=== PATIENT | male | born 1985 | race Caucasian/White ===

== ENCOUNTER 2023-07-19 07:49 | Outpatient (CLI) | payer OTHER ==
[2023-07-19 08:27] LABS: #Basophils 0.07 10x3/uL (0.0-0.2); #Eosinphils 0.19 10x3/uL (0.0-0.5); #Monocytes 0.51 10x3/uL (0.0-1.1); #Neutrophils 2.37 10x3/uL (1.5-8.4); %Eosinophils 2.8 % (0.0-6.0); %Lymphocytes 52.2 % (18.0-47.0); %Monocytes 7.6 % (0.0-10.0); %Neutrophils 35.4 % (40.0-75.0); Hematocrit 44.4 % (38.8-50.0); Hemoglobin 15.6 g/dL (13.5-17.5); Mean Corpuscular HGB CONC 35.1 g/dL (32.0-36.0); Mean Corpuscular Hemoglobin 28.4 pg (27.0-33.0); Mean Corpuscular Volume 80.7 fL (81.2-95.1); Mean Platelet Volume 9.6 fL (7.4-10.4); Platelet Count 234 10x3/uL (150-450); RBC Distribution Width 12.8 % (11.5-14.5); White Blood Cell (WBC) Count 6.7 10x3/uL (3.5-10.5)
[2023-07-19 08:46] LABS: Anion Gap 15 mmol/L (10-20); BUN (Urea Nitrogen) 20 mg/dL (8.9-20.6); Calc. Creatinine Clearance 0 mL/min (70-130); Calcium 9.7 mg/dL (7.8-10.44); Carbon Dioxide 25 mmol/L (22-29); Chloride 106 mmol/L (98-107); Estimated GFR 96; Glucose 109 mg/dL (70-105); Potassium 4.8 mmol/L (3.5-5.1); Sodium 141 mmol/L (136-145)
== END 2023-07-19 07:50 | disposition home or self-care (01) ==
LOC: LABBT 07:49
PROVIDERS: ATTEND Orthopaedic Surgery
DX: Z01.812 Encounter for preprocedural laboratory examination (principal); S43.432A Superior glenoid labrum lesion of left shoulder, initial encounter
CPT/HCPCS: 80048; 85025

== ENCOUNTER 2023-07-27 05:33 | Day surgery (SDC) | payer OTHER ==
[2023-07-19 08:15] VITALS: BMI 29.0
[2023-07-27] MEDS ORDERED: Bupivacaine 0.25% HCL 30 ML VIAL ONE (06:27)
[2023-07-27] MEDS ORDERED: EPINEPHrine 1 MG/ML VIAL ONE (06:27)
[2023-07-27] MEDS ORDERED: fentaNYL 50 mcg/mL 1 mL Vial ONE (06:43)
[2023-07-27] MEDS ORDERED: Ropivacaine 0.5% HCl/PF (150 MG/30 ML VIAL) ONE (06:43)
[2023-07-27] MEDS ORDERED: Midazolam HCl 2 mg/2 ml Vial ONE (06:43)
[2023-07-27] MEDS ORDERED: Ropivacaine 0.2% HCl/PF 20 ML ONE (06:43)
[2023-07-27] MEDS ORDERED: Dexmedetomidine 200 MCG/2 ML VIAL ONE (06:47)
[2023-07-27] MEDS ORDERED: Rocuronium Bromide 10 MG/ML (10ML VIAL) ONE ×2 (07:18→07:20)
[2023-07-27] MEDS ORDERED: PROPOFOL 20 ML ONE ×2 (07:18→08:18)
[2023-07-27] MEDS ORDERED: CEFAZOLIN 2 GM VIAL ONE (07:22)
[2023-07-27] MEDS ORDERED: Sodium Chloride 0.9% 100 ML ONE (07:23)
[2023-07-27] MEDS ORDERED: Promethazine HCl 25 MG/ML VIAL IM PRN (07:30)
[2023-07-27] MEDS ORDERED: Ondansetron PF 4 MG/2 ML Vial IVP PRN (07:30)
[2023-07-27] MEDS ORDERED: Zolpidem Tartrate 5 MG TAB PO PRN (07:30)
[2023-07-27] MEDS ORDERED: HYDROcodone/Acetaminophen 10/325 mg Tablet PO PRN ×2 (07:30)
[2023-07-27] MEDS ORDERED: traMADol HCl 50 MG TAB PO PRN ×2 (07:30)
[2023-07-27] MEDS ORDERED: Ropivacaine 0.2% 550 ML 550 ML NERVE BLCK SCH (07:30)
[2023-07-27] MEDS ORDERED: Dexamethasone 20 MG/5 ML VIAL ONE (07:38)
[2023-07-27] MEDS ORDERED: Vecuronium 10 MG VIAL ONE (08:10)
[2023-07-27] MEDS ORDERED: SUGAMMADEX SODIUM 200 MG/2 ML VIAL ONE (08:57)
[2023-07-27] MEDS ORDERED: Ketorolac Tromethamine 30 MG (1 mL) VIAL ONE (08:58)
[2023-07-27] MEDS ORDERED: Lidocaine 4% Topical Sol 50 ML BOT ONE (09:27)
[2023-07-27] MEDS ORDERED: Ketorolac Tromethamine 30 MG (1 mL) VIAL IVP SCH (12:00)
== END 2023-07-27 11:44 | disposition home or self-care (01) ==
LOC: SDC 05:33
PROVIDERS: ATTEND Orthopaedic Surgery
PROC: 0LM24ZZ Reattachment of Left Shoulder Tendon, Percutaneous Endoscopic Approach (ICD-10-PCS; principal; 2023-07-27)
DX: S42.142A Displaced fracture of glenoid cavity of scapula, left shoulder, initial encounter for closed fracture (principal); S43.432A Superior glenoid labrum lesion of left shoulder, initial encounter; S53.432A Radial collateral ligament sprain of left elbow, initial encounter; X58.XXXA Exposure to other specified factors, initial encounter
CPT/HCPCS: A4306; C1713; J0171; J0665; J1100; J1885; J2250; J2704; J2795; J3010; J3490

== ENCOUNTER → 2023-07-28 | Day surgery (SDC) | payer OTHER ==
[~2023-07-28] MED LIST: Bupivacaine PF 0.5% 30 ML VIAL ONE; Dexmedetomidine 200 MCG/2 ML VIAL ONE; Lidocaine 1% PF 5 ML VIAL ONE; Ropivacaine 0.5% HCl/PF (150 MG/30 ML VIAL) ONE
== END ==
LOC: SDC/OP 11:38
PROVIDERS: ATTEND Orthopaedic Surgery
PROC: 3E0T3BZ Introduction of Anesthetic Agent into Peripheral Nerves and Plexi, Percutaneous Approach (ICD-10-PCS; principal; 2023-07-28)
DX: G89.18 Other acute postprocedural pain (principal)
CPT/HCPCS: J0665; J2795